=== PATIENT | male | born 1965 | race Caucasian/White ===

== ENCOUNTER 2022-03-29 13:08 | Emergency (ER) | payer OTHER ==
[2022-03-29 14:26] LABS: Absolute Lymphocytes (CBC) 1.3 K/uL (0.7-4.9); Hematocrit 44.3 % (39.6-49.0); Lymphocytes % 21.2 % (15.3-44.8); MCV 87.5 fL (80-100); MPV 8.6 fL (7.6-11.3); RBC Red Blood Cell Count 5.06 M/uL (4.33-5.43)
[2022-03-29 14:44] LABS: Potassium 4.5 mmol/L (3.5-5.1)
--- NOTE | 2022-03-29 15:36 | RAD REPORT ---
EXAM DESCRIPTION: RAD - Foot Right 3 View - 03/29/2022 3:04 pm CLINICAL HISTORY: PAIN COMPARISON: No comparisons FINDINGS/IMPRESSION: No acute fracture. No malalignment. Calcaneal spurring. No soft tissue gas, rad iopaque foreign body, or radiographic evidence of osteomyelitis.
--- NOTE | 2022-03-29 16:03 | EDPHYS ---
Physician Documentation [facility] Name: Bennett Umana Age: 56 yrs Sex: Male : 1965 Arrival Date: 03/29/2022 Time: 13:10 Bed 4 Private MD: Loki Casarez T ED Physician Elsy Dao Historical: - Allergies: 03/29 13:22 No Known Allergies; ll1 - PMHx: 13:22 Hypertensive disorder; Diabetes mellitus; Gout; GERD; ll1 - PSHx: 13:22 hernia repair; ll1 - Immunization history:: Client reports having NOT received the Covid vaccine. - Social history:: Smoking status: Patient denies any tobacco usage or history of. Vital Signs: 13:23 BP 148 / 92; Pulse 104; Resp 17; Temp 97.1; Pulse Ox 99% ; Weight 109.77 kg; Height 6 ll1 ft. 2 in. (187.96 cm); Pain 7/10; 13:23 Body Mass Index 31.07 (109.77 kg, 187.96 cm) ll1 MDM: 13:27 Patient medically screened. 03/29 13:46 Order name: CBC with Diff; Complete Time: 14:32 03/29 13:46 Order name: Basic Metabolic Panel; Complete Time: 14:46 03/29 13:46 Order name: Foot Right 3 View XRAY; Complete Time: 15:46 03/29 13:46 Order name: Lactate; Complete Time: 14:56 03/29 13:46 Order name: Blood Culture Adult (2) 03/29 16:04 Order name: Wound Culture 03/29 13:46 Order name: IV Start; Complete Time: 14:10 kb Administered Medications: 16:37 Drug: Bactrim (trimethoprim-sulfamethoxazole) (160 mg-800 mg (DS) 1 tablet Route: PO; pickett 16:37 Follow up: Response: No adverse reaction pickett 16:37 Drug: Rocephin (cefTRIAXone) 1 grams Route: IV; Rate: calculated rate; Site: left pickett antecubital; 16:37 Follow up: IV Status: Completed infusion pickett Disposition Summary: 03/29/22 16:03 Discharge Ordered Location: Home kb Condition: Stable kb Diagnosis - Cellulitis of right lower limb kb - Open wound of toe without damage to nail kb Followup: kb - With: Emergency Department - When: As needed - Reason: Worsening of condition Followup: kb - With: Private Physician - When: 2 - 3 days - Reason: Recheck today's complaints, Continuance of care, Re-evaluation by your physician Discharge Instructions: - Discharge Summary Sheet kb - Cellulitis, Adult, [id number]-Gbit kb Forms: - Medication Reconciliation Form kb - Thank You Letter kb - Antibiotic Education kb - Prescription Opioid Use kb Prescriptions: - Cephalexin 500 mg Oral Capsule - take 1 capsule by ORAL route every 8 hours for 10 days; 30 capsule; Refills: 0, kb Product Selection Permitted - Bactrim DS 800-160 mg Oral Tablet - take 1 tablet by ORAL route every 12 hours for 10 days; 20 tablet; Refills: 0, kb Product Selection Permitted Signatures: Dispatcher [employer] EDGracia Valverde, LEAD DATA ENTRY OPERATOR-C Jacki Harris RN RN ll1 Jackie Ocampo RN RN pickett Corrections: (The following items were deleted from the chart) 14:15 13:48 LACTATE+C.LAB.BRZ ordered. EDCT EDCT
--- NOTE | 2022-03-29 16:03 | ER ---
Nurse's Notes [facility] Name: Bennett Umana Age: 56 yrs Sex: Male : 1965 Arrival Date: 03/29/2022 Time: 13:10 Bed 4 Private MD: Loki Casarez T Diagnosis: Cellulitis of right lower limb;Open wound of toe without damage to nail Presentation: 03/29 13:23 Chief complaint: Patient states: R foot toe wound for 3 weeks, treating it slowly at [facility] home. 3 days ago he started having redness and swelling up the R foot. No fever. Coronavirus screen: Vaccine status: Patient reports being unvaccinated. Client denies travel out of the [place] in the last 14 days. At this time, the client does not indicate any symptoms associated with coronavirus-19. Ebola Screen: Patient denies travel to an Ebola-affected area in the 21 days before illness onset. Initial Sepsis Screen: Does the patient meet any 2 criteria? HR > 90 bpm. No. Patient's initial sepsis screen is negative. Does the patient have a suspected source of infection? Yes: Skin breakdown/wound. Risk Assessment: Do you want to hurt yourself or someone else? Patient reports no desire to harm self or others. Onset of symptoms was March 08, 2022. 13:23 Method Of Arrival: Ambulatory [facility] 13:23 Acuity: FANG 3 ll1 Triage Assessment: 14:02 General: Appears in no apparent distress. Behavior is calm, cooperative. pickett Historical: - Allergies: 13:22 No Known Allergies; ll1 - PMHx: 13:22 Hypertensive disorder; Diabetes mellitus; Gout; GERD; ll1 - PSHx: 13:22 hernia repair; [facility] - Immunization history:: Client reports having NOT received the Covid vaccine. - Social history:: Smoking status: Patient denies any tobacco usage or history of. Screenin:01 Abuse screen: Denies threats or abuse. Denies injuries from another. Nutritional pickett screening: No deficits noted. Tuberculosis screening: No symptoms or risk factors identified. Fall Risk Gait- Impaired (20 pts.). Assessment: 13:59 Pain: Complains of pain in dorsum of right foot. Derm: RIGHT FOOT SWOLLEN AND ALBA. pickett Musculoskeletal: Reports pain in dorsum of right foot Pain is 8 out of 10 on a pain scale. Vital Signs: 13:23 BP 148 / 92; Pulse 104; Resp 17; Temp 97.1; Pulse Ox 99% ; Weight 109.77 kg; Height 6 ll1 ft. 2 in. (187.96 cm); Pain 7/10; 13:23 Body Mass Index 31.07 (109.77 kg, 187.96 cm) ll1 ED Course: 13:10 Patient arrived in ED. mr 13:10 Loki Casarez MD is Private Physician. mr 13:22 Arm band placed on. ll1 13:25 Triage completed. ll1 13:27 Gr[facility]ata [facility]-C [facility] kb 13:27 Elsy Dao MD is Attending Physician. kb 13:58 Jackie Ocampo, PRITI is Primary Nurse. pickett 14:01 Patient has correct armband on for positive identification. Bed in low position. pickett 14:01 No provider procedures requiring assistance completed. pickett 14:13 Call light in reach. Side rails up X 1. Door closed. Noise minimized. Warm blanket mb7 given. 14:13 Inserted saline lock: 20 gauge in left antecubital area, using aseptic technique. Blood mb7 collected. 15:06 Foot Right 3 View XRAY In Process Unspecified. EDMS 16:37 IV discontinued, intact, Pressure dressing applied. pickett Administered Medications: 16:37 Drug: Bactrim (trimethoprim-sulfamethoxazole) (160 mg-800 mg (DS) 1 tablet Route: PO; pickett 16:37 Follow up: Response: No adverse reaction pickett 16:37 Drug: Rocephin (cefTRIAXone) 1 grams Route: IV; Rate: calculated rate; Site: left pickett antecubital; 16:37 Follow up: IV Status: Completed infusion pickett Medication: 14:02 VIS not applicable for this client. pickett Outcome: 16:03 Discharge ordered by . kb 16:37 Discharged to home ambulatory. pickett 16:37 Condition: good 16:37 Discharge instructions given to patient, Prescriptions given X 2. 16:37 Patient left the ED. pickett Signatures: Dispatcher [employer] EDMS Gracia Mata FNP-C FNP-Ckb Rivera, Mary mr Lewis, Lynsay, RN RN 1 Cristiana Bedoya mb7 Jackie Ocampo RN RN pickett Corrections: (The following items were deleted from the chart) 14:15 14:10 LACTATE+C.LAB.EDITH drawn and sent. piyush SIMONS
[2022-03-29] MEDS ORDERED: SMZ./TMP. 800/160 MG TABLET ONE (16:35)
[2022-03-29] MEDS ORDERED: CEFTRIAXONE 1000 MG/VIAL ONE (16:36)
[2022-03-29 17:15] VITALS: BP 148/92; TEMP 97.1; O2SAT 99
== END 2022-03-29 16:37 | disposition home or self-care (01) ==
LOC: ER 13:08
DX: L03.115 Cellulitis of right lower limb (principal); S91.104A Unspecified open wound of right lesser toe(s) without damage to nail, initial encounter; E11.9 Type 2 diabetes mellitus without complications; I10 Essential (primary) hypertension
CPT/HCPCS: 36415; 80048; 83605; 85025; 87040; 87070; 87205; 96374; 99284